=== PATIENT | female | born 1935 | race Caucasian/White ===

== ENCOUNTER 2023-07-17 10:51 | Inpatient (IN) | payer BC, MEDICARE ==
[2023-07-17] MEDS ORDERED: cefTRIAXone (ROCEPHIN) 1 GM VIAL ONE (11:45)
[2023-07-17] MEDS ORDERED: Azithromycin 500 MG VIAL ONE (11:45)
[2023-07-17 11:57] LABS: Hematocrit 35.2 % (34.9-44.5); Mean Corpuscular HGB CONC 32.4 g/dL (32.0-36.0); Mean Corpuscular Hemoglobin 32.2 pg (27.0-33.0); Mean Corpuscular Volume 99.4 fl (81.6-98.3); Mean Platelet Volume 10.1 fl (7.4-10.4); Platelet Count 275 10x3/uL (150-450); RBC Distribution Width 13.3 % (11.5-14.5)
[2023-07-17 12:00] LABS: Hemoglobin 11.4 g/dL (12.0-15.5); MDiff Complete? YES; Red Blood Cell (RBC) Count 3.54 10x6/uL (3.90-5.03); White Blood Cell (WBC) Count 25.9 10x3/uL (3.5-10.5)
[2023-07-17 12:01] LABS: SARS-CoV-2 NAA Rapid Test Not Detected (NotDetected)
[2023-07-17 12:11] LABS: ALT (SGPT) 28 U/L (8-55); AST (SGOT) 21 U/L (5-34); Albumin 3.8 g/dL (3.4-4.8); Alkaline Phosphatase 94 U/L (40-110); Anion Gap 20 mmol/L (10-20); BUN (Urea Nitrogen) 81 mg/dL (9.8-20.1); Bilirubin, Total 1.3 mg/dL (0.2-1.2); Calc. Creatinine Clearance 0 mL/min (70-130); Calcium 9.6 mg/dL (7.8-10.44); Carbon Dioxide 23 mmol/L (23-31); Chloride 102 mmol/L (98-107); Estimated GFR 22; Globulin 3.8 g/dL (2.4-3.5); Glucose 121 mg/dL (83-110); Potassium 3.7 mmol/L (3.5-5.1); Protein, Total 7.6 g/dL (5.8-8.1); Sodium 141 mmol/L (136-145)
[2023-07-17 12:23] LABS: Troponin I 0.588 ng/mL (< 0.028)
[2023-07-17 12:30] LABS: Band 45 % (5-11); Lymphocytes 2 % (21-51); Reactive Lymphocytes 1 % (0-10)
[2023-07-17 12:32] LABS: Monocytes 5 % (0-10); Neutrophil 47 % (42-75)
[2023-07-17 12:34] LABS: Toxic Granulation SLIGHT; Vacuoles SLIGHT
[2023-07-17] MEDS ORDERED: Ondansetron ODT 4 MG TAB PO PRN (13:05)
[2023-07-17] MEDS ORDERED: Communication Order-Pharmacy FS SCH (13:05)
[2023-07-17] MEDS ORDERED: Ondansetron PF 4 MG/2 ML Vial IVP PRN (13:05)
[2023-07-17] MEDS ORDERED: Senokot S 8.6-50 MG TAB PO PRN (13:05)
[2023-07-17] MEDS ORDERED: Ipratropium/Albuterol 3 ML NEB NEB PRN (13:12)
[2023-07-17] MEDS ORDERED: guaiFENesin ER 600 MG TAB PO SCH ×2 (13:15→21:00)
[2023-07-17 14:35] LABS: Lactic Acid 2.7 mmol/L (0.5-2.2)
[2023-07-17] MEDS ORDERED: Furosemide 40 MG (4 mL) VIAL SLOW IVP SCH ×2 (16:30→19:15)
[2023-07-17 16:46] LABS: Bilirubin Neg (Negative); Blood, Urine 10 (Negative); Clarity Cloudy (Clear); Glucose, Urine (Dipstick) Normal (Negative); Ketone, Urine Negative (Negative); Leukocyte 25 (Negative); Nitrite Negative (Negative); Protein, Urine (Dipstick) 30 mg/dl (Neg-Trace)
[2023-07-17 16:56] LABS: CAUTI Indications for Culture Dysuria,urgency,freq
[2023-07-17 16:57] LABS: Bacteria/HPF 3+ HPF (None Seen); Transitional Epithelial 0-3 HPF (None Seen)
[2023-07-17 16:58] LABS: Red Blood Cell Cast 0-3 LPF (None Seen)
[2023-07-17 16:59] LABS: Urine Culture Reflex No No
[2023-07-17] MEDS ORDERED: Carvedilol 6.25 MG TAB PO SCH (17:00)
[2023-07-17 18:41] LABS: Troponin I 0.486 ng/mL (< 0.028)
[2023-07-17] MEDS ORDERED: FLU VACC QS2023(65UP)/MF59C/PF 60 MCG/0.5 ML SYRINGE IM ONE (19:00)
[2023-07-17] MEDS ORDERED: dilTIAZem 25 MG/5 ML VIAL SLOW IVP SCH ×2 (20:00→20:45)
[2023-07-17] MEDS: Metoprolol Tartrate 5 MG (5 mL) VIAL IVP SCH ×2 (20:13→21:11)
[2023-07-17] MEDS ORDERED: Apixaban 2.5 MG TAB PO SCH (21:00)
[2023-07-17 21:08] LABS: Actual Bicarbonate (HCO3v) 20.2 mEq/L (22-28); Analyzer IN Cardio CS ICU; Base Excess -3.5 mEq/L (-2 - +2); Calcium, Ionized (venous) 1.08 mmol/L (1.16-1.32); Chloride (VBG) 106 mmol/L (98-106); Hematocrit-VBG 32 % (36.0-47.0); Potassium (VBG) 3.62 mmol/L (3.70-5.30); Puncture Site Other Site; RapidComm Collect By lab; Sodium 140 mmol/L (133-146); pH (venous) 7.416 (7.32-7.43)
[2023-07-17] MEDS ORDERED: dilTIAZem 125 MG in Sodium Chloride 0.9% 100 ML IVPB SCH ×2 (21:15→21:30)
[2023-07-17] MEDS ORDERED: Dextrose 50% Abboject 50 ML SYRINGE SLOW IVP PRN (21:47)
[2023-07-17] MEDS ORDERED: Glucagon 1 MG/ML KIT IM PRN (21:47)
[2023-07-17] MEDS ORDERED: Dextrose 5% in Water 1,000 ML IV PRN (21:47)
[2023-07-17] MEDS ORDERED: Enoxaparin 30 MG (0.3 mL) SYRINGE SC SCH (22:00)
[2023-07-17] MEDS ORDERED: Meropenem 1 GM in Sodium Chloride 0.9% 100 ML IVPB SCH (22:00)
[2023-07-17] MEDS ORDERED: Vancomycin Dose by Levels Sliding Scale (Wt <71) FS SCH (22:00)
[2023-07-17] MEDS ORDERED: Vancomycin HCl 750 MG in Sodium Chloride 0.9% 250 ML 250 ML IVPB SCH (22:00)
[2023-07-17 22:10] LABS: Anion Gap 19 mmol/L (10-20); BUN (Urea Nitrogen) 80 mg/dL (9.8-20.1); Calc. Creatinine Clearance 14 mL/min (70-130); Calcium 8.8 mg/dL (7.8-10.44); Carbon Dioxide 18 mmol/L (23-31); Chloride 106 mmol/L (98-107); Estimated GFR 24; Glucose 128 mg/dL (83-110); Potassium 3.6 mmol/L (3.5-5.1); Sodium 139 mmol/L (136-145)
[2023-07-17 22:14] LABS: Hematocrit 29.6 % (34.9-44.5); Hemoglobin 9.7 g/dL (12.0-15.5); Mean Corpuscular HGB CONC 32.8 g/dL (32.0-36.0); Mean Corpuscular Hemoglobin 33.7 pg (27.0-33.0); Mean Corpuscular Volume 102.8 fl (81.6-98.3); Mean Platelet Volume 10.7 fl (7.4-10.4); Platelet Count 277 10x3/uL (150-450); RBC Distribution Width 13.2 % (11.5-14.5); Red Blood Cell (RBC) Count 2.88 10x6/uL (3.90-5.03); White Blood Cell (WBC) Count 36.9 10x3/uL (3.5-10.5)
[2023-07-17 22:46] LABS: Band 12 % (5-11); Lymphocytes 1 % (21-51); Monocytes 2 % (0-10)
[2023-07-17 22:47] LABS: Platelet Adequacy Comment Appears Adequate; RBC Morph Comment Within Normal Limits
[2023-07-17 22:48] LABS: Troponin I 0.454 ng/mL (< 0.028)
[2023-07-17] MEDS ORDERED: Digoxin 0.5 MG/2 ML AMP ONE (23:37)
[2023-07-17 23:49] LABS: MDiff Complete? YES
[2023-07-18] MEDS ORDERED: Digoxin 0.5 MG/2 ML AMP SLOW IVP SCH (00:15)
[2023-07-18] MEDS ORDERED: Metoprolol Tartrate 5 MG (5 mL) VIAL IVP SCH (00:45)
[2023-07-18] MEDS ORDERED: Cefepime 2 GM in Sodium Chloride 0.9% 100 ML IVPB SCH (02:00)
[2023-07-18 03:18] LABS: Actual Bicarbonate (HCO3a) 21.3 mEq/L (22-28); Analyzer IN Cardio CS ICU; Base Excess (BEa) -5.1 mEq/L (-2.0 to +3.0); CO2 Tension 45.6 mmHg (35.0-45.0); Calcium, Ionized (arterial) 1.16 mmol/L (1.12-1.30); Carboxyhemoglobin (COHb) 0.3 gm% (0.0-3.0); Hematocrit-ABG 31 % (36.0-47.0); Hemoglobin (Hb) 10.4 g/dL (12.0-16.0); O2 Tension (PaO2), arterial 59.2 mmHg (> 60.0); Potassium - ABG Lab 3.76 mmol/L (3.70-5.30); Puncture Site LRA; pH, Arterial 7.288 (7.35-7.45)
[2023-07-18 03:44] LABS: Hematocrit 30.7 % (34.9-44.5); Hemoglobin 10.1 g/dL (12.0-15.5); Mean Corpuscular HGB CONC 32.9 g/dL (32.0-36.0); Mean Corpuscular Hemoglobin 33.7 pg (27.0-33.0); Mean Corpuscular Volume 102.3 fl (81.6-98.3); Mean Platelet Volume 10.6 fl (7.4-10.4); Platelet Count 299 10x3/uL (150-450); RBC Distribution Width 13.5 % (11.5-14.5); White Blood Cell (WBC) Count 34.5 10x3/uL (3.5-10.5)
[2023-07-18] MEDS ORDERED: Ventilator Sedation Protocol 1 EACH FS ONE (03:59)
[2023-07-18 04:00] LABS: Lactic Acid 1.9 mmol/L (0.5-2.2)
[2023-07-18 04:01] LABS: Band 3 % (5-11); Lymphocytes 3 % (21-51)
[2023-07-18 04:02] LABS: Anion Gap 20 mmol/L (10-20); BUN (Urea Nitrogen) 82 mg/dL (9.8-20.1); Calc. Creatinine Clearance 13 mL/min (70-130); Calcium 8.8 mg/dL (7.8-10.44); Carbon Dioxide 19 mmol/L (23-31); Chloride 107 mmol/L (98-107); Estimated GFR 22; Glucose 133 mg/dL (83-110); MDiff Complete? YES; Platelet Adequacy Comment Appears Adequate; Potassium 3.8 mmol/L (3.5-5.1); RBC Morph Comment Within Normal Limits; Sodium 142 mmol/L (136-145)
[2023-07-18] MEDS ORDERED: DISCONTINUE PREVIOUS NARCOTIC PAIN MEDICATIONS AND BENZODIAZEPINES FS SCH (04:15)
[2023-07-18] MEDS ORDERED: Propofol BOLUS 1,000 MG/100 ML VIAL IV PRN (04:15)
[2023-07-18] MEDS ORDERED: Fentanyl BOLUS 250 ML IVPB PRN (04:15)
[2023-07-18] MEDS ORDERED: FENTANYL 2,000MCG/100-0.9%NACL 100 ML IVPB SCH (04:15)
[2023-07-18] MEDS ORDERED: Propofol 1,000 MG/100 ML VIAL IV PRN (04:15)
[2023-07-18] MEDS ORDERED: Sodium Chloride 0.9% 500 ML IV SCH (04:15)
[2023-07-18 04:54] LABS: Actual Bicarbonate (HCO3a) 21.3 mEq/L (22-28); Analyzer IN Cardio CS ICU; Base Excess (BEa) -4.7 mEq/L (-2.0 to +3.0); CO2 Tension 43.3 mmHg (35.0-45.0); Calcium, Ionized (arterial) 1.12 mmol/L (1.12-1.30); Carboxyhemoglobin (COHb) 0.3 gm% (0.0-3.0); Hematocrit-ABG 29 % (36.0-47.0); Hemoglobin (Hb) 9.8 g/dL (12.0-16.0); O2 Tension (PaO2), arterial 128.7 mmHg (> 60.0); Puncture Site RBA
[2023-07-18 04:56] LABS: ALV-art Gradient 530.175 mmHg (0-20)
[2023-07-18] MEDS: Dexmedetomidine In 0.9 % NaCl 100 ML IVPB SCH ×2 (05:41→17:51)
[2023-07-18] MEDS: Meropenem 500 MG in Sodium Chloride 0.9% 100 ML IVPB SCH ×2 (05:43→17:51)
[2023-07-18] MEDS: Furosemide 20 MG (2 mL) VIAL SLOW IVP SCH ×2 (05:44→14:18)
[2023-07-18 07:18] LABS: Neutrophil 94 % (42-75)
[2023-07-18] MEDS ORDERED: Esmolol 2,500 MG/250 ML 250 ML IVPB SCH (08:45)
[2023-07-18] MEDS: Metoprolol Tartrate 25 MG TAB PO SCH ×2 (09:23→21:22)
[2023-07-18 09:31] LABS: Magnesium 2.3 mg/dL (1.6-2.6)
[2023-07-18] MEDS ORDERED: NOREPINEPHRINE 8 MG/250 ML-D5W 250 ML ONE (11:32)
[2023-07-18] MEDS: NOREPINEPHRINE 8 MG/250 ML-D5W 250 ML IVPB SCH (11:44)
[2023-07-18] MEDS ORDERED: Azithromycin 500 MG in Sodium Chloride 0.9% 250 ML 250 ML IVPB SCH (13:00)
[2023-07-18] MEDS ORDERED: Lactated Ringer's 500 ML IV SCH (15:00)
[2023-07-18] MEDS: Lactated Ringer's 1,000 ML IV SCH (17:55)
[2023-07-18] MEDS: Metoprolol Tartrate 5 MG (5 mL) VIAL IVP PRN (18:16)
[2023-07-18] MEDS: Lorazepam 2 MG/ML VIAL SLOW IVP PRN (18:16)
[2023-07-18] MEDS ORDERED: Enoxaparin 30 MG (0.3 mL) SYRINGE SC SCH (21:00)
[2023-07-18] MEDS: Enoxaparin 30 MG (0.3 mL) SYRINGE SC SCH (21:22)
[2023-07-18 22:22] LABS: Legionella Urinary Ag Negative (Negative); Strep pneumo Urine Ag POSITIVE (NEGATIVE)
[2023-07-18 22:30] LABS: Vancomycin, Random 7.6 ug/mL (See Comment)
[2023-07-18] MEDS ORDERED: Vancomycin HCl 750 MG in Sodium Chloride 0.9% 250 ML 250 ML IVPB SCH (23:45)
[2023-07-19] MEDS: Dexmedetomidine In 0.9 % NaCl 100 ML IVPB SCH ×3 (03:18→22:57)
[2023-07-19] MEDS: NOREPINEPHRINE 8 MG/250 ML-D5W 250 ML IVPB SCH (03:19)
[2023-07-19 04:56] LABS: Hemoglobin 8.7 g/dL (12.0-15.5); MDiff Complete? YES; Mean Corpuscular HGB CONC 33.5 g/dL (32.0-36.0); Mean Corpuscular Hemoglobin 33.7 pg (27.0-33.0); Mean Corpuscular Volume 100.8 fl (81.6-98.3); Mean Platelet Volume 10.3 fl (7.4-10.4); Platelet Count 296 10x3/uL (150-450); RBC Distribution Width 13.5 % (11.5-14.5); Red Blood Cell (RBC) Count 2.58 10x6/uL (3.90-5.03); White Blood Cell (WBC) Count 28.3 10x3/uL (3.5-10.5)
[2023-07-19 05:06] LABS: Phosphorus 4.1 mg/dL (2.3-4.7)
[2023-07-19 05:08] LABS: Anion Gap 16 mmol/L (10-20); BUN (Urea Nitrogen) 89 mg/dL (9.8-20.1); Calc. Creatinine Clearance 13 mL/min (70-130); Calcium 8.2 mg/dL (7.8-10.44); Carbon Dioxide 20 mmol/L (23-31); Chloride 111 mmol/L (98-107); Estimated GFR 23; Glucose 113 mg/dL (83-110); Magnesium 2.2 mg/dL (1.6-2.6); Potassium 3.6 mmol/L (3.5-5.1); Sodium 143 mmol/L (136-145)
[2023-07-19 05:19] LABS: Band 4 % (5-11); Lymphocytes 4 % (21-51); Monocytes 6 % (0-10); Neutrophil 86 % (42-75)
[2023-07-19 05:22] LABS: Platelet Adequacy Comment Appears Adequate; RBC Morph Comment Within Normal Limits; Toxic Granulation SLIGHT
[2023-07-19] MEDS: Meropenem 500 MG in Sodium Chloride 0.9% 100 ML IVPB SCH (05:48)
[2023-07-19] MEDS: Lactated Ringer's 1,000 ML IV SCH ×2 (05:48→11:20)
[2023-07-19] MEDS ORDERED: Furosemide 20 MG (2 mL) VIAL SLOW IVP SCH (06:00)
[2023-07-19] MEDS: Metoprolol Tartrate 25 MG TAB PO SCH ×2 (08:53→21:19)
[2023-07-19] MEDS ORDERED: LevoFLOXacin 750 mg/D5W 750 MG in Premix 1 BAG IVPB SCH (16:30)
[2023-07-19] MEDS: cefTRIAXone\\ROCEPHIN 2 GM in Sodium Chloride 0.9% 100 ML IVPB SCH (17:24)
[2023-07-19] MEDS: Lorazepam 2 MG/ML VIAL SLOW IVP PRN (18:20)
[2023-07-19] MEDS: Enoxaparin 30 MG (0.3 mL) SYRINGE SC SCH (21:19)
[2023-07-19] MEDS: Acetaminophen 325 MG TAB PO PRN (21:24)
[2023-07-20 00:21] LABS: Vancomycin, Random 12.8 ug/mL (See Comment)
[2023-07-20] MEDS ORDERED: Vancomycin HCl 500 MG in Sodium Chloride 0.9% 100 ML IVPB SCH (01:30)
[2023-07-20 03:07] LABS: #Basophils 0.1 10x3/uL (0.0-0.2); #Eosinphils 0.1 10x3/uL (0.0-0.5); #Monocytes 1.2 10x3/uL (0.0-1.1); #Neutrophils 19.9 10x3/uL (1.5-8.4); %Basophils 0.2 % (0.0-2.0); %Eosinophils 0.3 % (0.0-6.0); %Lymphocytes 4.1 % (18.0-47.0); %Monocytes 5.5 % (0.0-10.0); %Neutrophils 87.5 % (40.0-75.0); Hematocrit 26.4 % (34.9-44.5); Hemoglobin 8.8 g/dL (12.0-15.5); Mean Corpuscular HGB CONC 33.3 g/dL (32.0-36.0); Mean Corpuscular Volume 98.9 fl (81.6-98.3); Mean Platelet Volume 10.3 fl (7.4-10.4); Platelet Count 287 10x3/uL (150-450); RBC Distribution Width 13.3 % (11.5-14.5); Red Blood Cell (RBC) Count 2.67 10x6/uL (3.90-5.03); White Blood Cell (WBC) Count 22.7 10x3/uL (3.5-10.5)
[2023-07-20 04:36] LABS: Anion Gap 13 mmol/L (10-20); BUN (Urea Nitrogen) 71 mg/dL (9.8-20.1); Calc. Creatinine Clearance 20 mL/min (70-130); Calcium 8.1 mg/dL (7.8-10.44); Carbon Dioxide 21 mmol/L (23-31); Chloride 112 mmol/L (98-107); Estimated GFR 33; Glucose 126 mg/dL (83-110); Potassium 3.4 mmol/L (3.5-5.1); Sodium 143 mmol/L (136-145)
[2023-07-20] MEDS ORDERED: LevoFLOXacin 500 mg/D5W 500 MG in Premix 1 BAG IVPB SCH (07:30)
[2023-07-20] MEDS: Metoprolol Tartrate 25 MG TAB PO SCH ×2 (08:48→22:43)
[2023-07-20] MEDS: Dexmedetomidine In 0.9 % NaCl 100 ML IVPB SCH ×2 (08:49→21:05)
[2023-07-20] MEDS: Acetaminophen 325 MG TAB PO PRN (08:49)
[2023-07-20] MEDS ORDERED: Potassium Chloride 20 MEQ in Premix 1 BAG IVPB SCH (09:45)
[2023-07-20] MEDS: Lactated Ringer's 1,000 ML IV SCH (14:23)
[2023-07-20] MEDS: cefTRIAXone\\ROCEPHIN 2 GM in Sodium Chloride 0.9% 100 ML IVPB SCH (16:08)
[2023-07-20] MEDS: Enoxaparin 30 MG (0.3 mL) SYRINGE SC SCH (21:05)
[2023-07-20] MEDS: Metoprolol Tartrate 5 MG (5 mL) VIAL IVP PRN (21:05)
[2023-07-21 03:42] LABS: Hematocrit 28.6 % (34.9-44.5); Hemoglobin 9.5 g/dL (12.0-15.5); Mean Corpuscular HGB CONC 33.2 g/dL (32.0-36.0); Mean Corpuscular Hemoglobin 33.1 pg (27.0-33.0); Mean Corpuscular Volume 99.7 fl (81.6-98.3); Mean Platelet Volume 10.7 fl (7.4-10.4); Platelet Count 263 10x3/uL (150-450); RBC Distribution Width 13.3 % (11.5-14.5); Red Blood Cell (RBC) Count 2.87 10x6/uL (3.90-5.03); White Blood Cell (WBC) Count 25.3 10x3/uL (3.5-10.5)
[2023-07-21 03:43] LABS: MDiff Complete? YES
[2023-07-21 03:45] LABS: Anion Gap 14 mmol/L (10-20); BUN (Urea Nitrogen) 55 mg/dL (9.8-20.1); Calc. Creatinine Clearance 28 mL/min (70-130); Calcium 8.3 mg/dL (7.8-10.44); Carbon Dioxide 20 mmol/L (23-31); Chloride 113 mmol/L (98-107); Estimated GFR 46; Glucose 141 mg/dL (83-110); Potassium 3.9 mmol/L (3.5-5.1); Sodium 143 mmol/L (136-145)
[2023-07-21 03:55] LABS: Vancomycin, Random 12.1 ug/mL (See Comment)
[2023-07-21 04:09] LABS: Platelet Adequacy Comment Appears Adequate; RBC Morph Comment Within Normal Limits
[2023-07-21 04:11] LABS: Band 7 % (5-11); Lymphocytes 8 % (21-51); Monocytes 5 % (0-10); Neutrophil 80 % (42-75)
[2023-07-21] MEDS ORDERED: Vancomycin HCl 500 MG in Sodium Chloride 0.9% 100 ML IVPB SCH (04:30)
[2023-07-21] MEDS: Lactated Ringer's 1,000 ML IV SCH ×2 (04:52→08:55)
[2023-07-21] MEDS: Metoprolol Tartrate 5 MG (5 mL) VIAL IVP PRN ×3 (04:54→20:10)
[2023-07-21] MEDS: Metoprolol Tartrate 25 MG TAB PO SCH ×2 (08:55→20:26)
[2023-07-21] MEDS: cefTRIAXone\\ROCEPHIN 2 GM in Sodium Chloride 0.9% 100 ML IVPB SCH (15:08)
[2023-07-21] MEDS: LevoFLOXacin 500 mg/D5W 500 MG in Premix 1 BAG IVPB SCH (16:27)
[2023-07-21] MEDS ORDERED: LevoFLOXacin 500 mg/D5W 500 MG in Premix 1 BAG IVPB SCH (16:30)
[2023-07-21] MEDS: Acetaminophen 325 MG TAB PO PRN (16:54)
[2023-07-21] MEDS: Enoxaparin 30 MG (0.3 mL) SYRINGE SC SCH (20:25)
[2023-07-21] MEDS: Dexmedetomidine In 0.9 % NaCl 100 ML IVPB SCH (23:21)
[2023-07-22 03:33] LABS: #Basophils 0.1 10x3/uL (0.0-0.2); #Eosinphils 0.2 10x3/uL (0.0-0.5); #Monocytes 1.1 10x3/uL (0.0-1.1); #Neutrophils 18.5 10x3/uL (1.5-8.4); %Basophils 0.3 % (0.0-2.0); %Eosinophils 0.7 % (0.0-6.0); %Lymphocytes 4.4 % (18.0-47.0); %Monocytes 4.9 % (0.0-10.0); %Neutrophils 85.7 % (40.0-75.0); Hematocrit 24.1 % (34.9-44.5); Hemoglobin 8.2 g/dL (12.0-15.5); Mean Corpuscular Hemoglobin 33.7 pg (27.0-33.0); Mean Corpuscular Volume 99.2 fl (81.6-98.3); Mean Platelet Volume 10.3 fl (7.4-10.4); Platelet Count 254 10x3/uL (150-450); RBC Distribution Width 13.4 % (11.5-14.5); Red Blood Cell (RBC) Count 2.43 10x6/uL (3.90-5.03); White Blood Cell (WBC) Count 21.6 10x3/uL (3.5-10.5)
[2023-07-22 03:44] LABS: Phosphorus 2.9 mg/dL (2.3-4.7); Vancomycin, Random 13.1 ug/mL (See Comment)
[2023-07-22 03:45] LABS: Anion Gap 13 mmol/L (10-20); BUN (Urea Nitrogen) 55 mg/dL (9.8-20.1); Calc. Creatinine Clearance 29 mL/min (70-130); Calcium 8.2 mg/dL (7.8-10.44); Carbon Dioxide 23 mmol/L (23-31); Chloride 111 mmol/L (98-107); Estimated GFR 46; Glucose 135 mg/dL (83-110); Potassium 3.7 mmol/L (3.5-5.1); Sodium 143 mmol/L (136-145)
[2023-07-22] MEDS ORDERED: Vancomycin HCl 500 MG in Sodium Chloride 0.9% 100 ML IVPB SCH (04:00)
[2023-07-22 04:21] LABS: CRP (Inflammatory) 8.01 mg/dL (= or < 0.5); Magnesium 1.7 mg/dL (1.6-2.6)
[2023-07-22] MEDS: Metoprolol Tartrate 25 MG TAB PO SCH ×2 (08:09→20:32)
[2023-07-22] MEDS ORDERED: Furosemide 40 MG (4 mL) VIAL SLOW IVP SCH (12:00)
[2023-07-22 13:08] LABS: Actual Bicarbonate (HCO3a) 23.8 mEq/L (22-28); Analyzer IN Cardio CS ICU; Base Excess (BEa) 0.6 mEq/L (-2.0 to +3.0); CO2 Tension 33.5 mmHg (35.0-45.0); Carboxyhemoglobin (COHb) 0.5 gm% (0.0-3.0); Hematocrit-ABG 36 % (36.0-47.0); Hemoglobin (Hb) 12.4 g/dL (12.0-16.0); O2 Tension (PaO2), arterial 71.3 mmHg (> 60.0); Potassium - ABG Lab 3.64 mmol/L (3.70-5.30); Puncture Site RRA; pH, Arterial 7.469 (7.35-7.45)
[2023-07-22 13:13] LABS: ALV-art Gradient 100.725 mmHg (0-20)
[2023-07-22] MEDS: Furosemide 40 MG (4 mL) VIAL SLOW IVP SCH (13:57)
[2023-07-22] MEDS: cefTRIAXone\\ROCEPHIN 2 GM in Sodium Chloride 0.9% 100 ML IVPB SCH (15:48)
[2023-07-22] MEDS: Enoxaparin 30 MG (0.3 mL) SYRINGE SC SCH (20:32)
[2023-07-22] MEDS: Dexmedetomidine In 0.9 % NaCl 100 ML IVPB SCH (23:52)
[2023-07-23 03:59] LABS: #Eosinphils 0.2 10x3/uL (0.0-0.5); #Monocytes 0.9 10x3/uL (0.0-1.1); #Neutrophils 13.9 10x3/uL (1.5-8.4); %Basophils 0.2 % (0.0-2.0); %Eosinophils 1.3 % (0.0-6.0); %Lymphocytes 5.8 % (18.0-47.0); %Monocytes 5.3 % (0.0-10.0); %Neutrophils 82.6 % (40.0-75.0); Hematocrit 23.3 % (34.9-44.5); Hemoglobin 7.7 g/dL (12.0-15.5); Mean Corpuscular Hemoglobin 32.4 pg (27.0-33.0); Mean Corpuscular Volume 97.9 fl (81.6-98.3); Mean Platelet Volume 10.5 fl (7.4-10.4); Platelet Count 301 10x3/uL (150-450); RBC Distribution Width 13.7 % (11.5-14.5); Red Blood Cell (RBC) Count 2.38 10x6/uL (3.90-5.03); White Blood Cell (WBC) Count 16.8 10x3/uL (3.5-10.5)
[2023-07-23 04:00] LABS: Phosphorus 3.2 mg/dL (2.3-4.7)
[2023-07-23 04:04] LABS: Vancomycin, Random 13.4 ug/mL (See Comment)
[2023-07-23 04:06] LABS: ALT (SGPT) 14 U/L (8-55); AST (SGOT) 17 U/L (5-34); Albumin 2.4 g/dL (3.4-4.8); Alkaline Phosphatase 52 U/L (40-110); Anion Gap 13 mmol/L (10-20); BUN (Urea Nitrogen) 47 mg/dL (9.8-20.1); Bilirubin, Total 0.3 mg/dL (0.2-1.2); CRP (Inflammatory) 5.19 mg/dL (= or < 0.5); Calc. Creatinine Clearance 33 mL/min (70-130); Carbon Dioxide 25 mmol/L (23-31); Chloride 108 mmol/L (98-107); Estimated GFR 54; Globulin 2.8 g/dL (2.4-3.5); Glucose 121 mg/dL (83-110); Magnesium 1.6 mg/dL (1.6-2.6); Potassium 3.4 mmol/L (3.5-5.1); Protein, Total 5.2 g/dL (5.8-8.1); Sodium 143 mmol/L (136-145)
[2023-07-23] MEDS ORDERED: Vancomycin HCl 750 MG in Sodium Chloride 0.9% 250 ML 250 ML IVPB SCH (04:30)
[2023-07-23] MEDS: Furosemide 40 MG (4 mL) VIAL SLOW IVP SCH ×2 (05:32→13:28)
[2023-07-23] MEDS: Metoprolol Tartrate 25 MG TAB PO SCH ×2 (08:39→20:47)
[2023-07-23] MEDS ORDERED: Potassium Chloride 20 MEQ in Premix 1 BAG IVPB SCH (10:00)
[2023-07-23] MEDS: Morphine 2 MG/ML VIAL SLOW IVP PRN (13:48)
[2023-07-23] MEDS: Metoprolol Tartrate 5 MG (5 mL) VIAL IVP PRN (14:10)
[2023-07-23] MEDS: cefTRIAXone\\ROCEPHIN 2 GM in Sodium Chloride 0.9% 100 ML IVPB SCH (15:35)
[2023-07-23] MEDS: LevoFLOXacin 500 mg/D5W 500 MG in Premix 1 BAG IVPB SCH (15:36)
[2023-07-23] MEDS: Enoxaparin 30 MG (0.3 mL) SYRINGE SC SCH (20:47)
[2023-07-24] MEDS: Metoprolol Tartrate 5 MG (5 mL) VIAL IVP PRN (00:44)
[2023-07-24] MEDS: Morphine 2 MG/ML VIAL SLOW IVP PRN (02:43)
[2023-07-24 02:50] LABS: #Basophils 0.1 10x3/uL (0.0-0.2); #Eosinphils 0.2 10x3/uL (0.0-0.5); #Monocytes 0.9 10x3/uL (0.0-1.1); #Neutrophils 14.3 10x3/uL (1.5-8.4); %Basophils 0.3 % (0.0-2.0); %Eosinophils 1.2 % (0.0-6.0); %Lymphocytes 6.9 % (18.0-47.0); %Monocytes 5.1 % (0.0-10.0); %Neutrophils 83.1 % (40.0-75.0); Hematocrit 25.4 % (34.9-44.5); Hemoglobin 8.4 g/dL (12.0-15.5); Mean Corpuscular HGB CONC 33.1 g/dL (32.0-36.0); Mean Corpuscular Hemoglobin 32.4 pg (27.0-33.0); Mean Corpuscular Volume 98.1 fl (81.6-98.3); Mean Platelet Volume 10.4 fl (7.4-10.4); Platelet Count 363 10x3/uL (150-450); RBC Distribution Width 13.8 % (11.5-14.5); Red Blood Cell (RBC) Count 2.59 10x6/uL (3.90-5.03); White Blood Cell (WBC) Count 17.2 10x3/uL (3.5-10.5)
[2023-07-24 02:57] LABS: Vancomycin, Random 17.1 ug/mL (See Comment)
[2023-07-24 02:59] LABS: ALT (SGPT) 14 U/L (8-55); AST (SGOT) 18 U/L (5-34); Albumin 2.7 g/dL (3.4-4.8); Alkaline Phosphatase 57 U/L (40-110); Anion Gap 15 mmol/L (10-20); BUN (Urea Nitrogen) 46 mg/dL (9.8-20.1); Bilirubin, Total 0.2 mg/dL (0.2-1.2); Calc. Creatinine Clearance 29 mL/min (70-130); Calcium 8.3 mg/dL (7.8-10.44); Carbon Dioxide 28 mmol/L (23-31); Chloride 103 mmol/L (98-107); Estimated GFR 51; Globulin 3.2 g/dL (2.4-3.5); Glucose 135 mg/dL (83-110); Magnesium 1.6 mg/dL (1.6-2.6); Phosphorus 3.7 mg/dL (2.3-4.7); Potassium 3.7 mmol/L (3.5-5.1); Protein, Total 5.9 g/dL (5.8-8.1); Sodium 142 mmol/L (136-145)
[2023-07-24] MEDS ORDERED: Vancomycin HCl 500 MG in Sodium Chloride 0.9% 100 ML IVPB SCH (04:00)
[2023-07-24] MEDS: Furosemide 40 MG (4 mL) VIAL SLOW IVP SCH (05:32)
[2023-07-24] MEDS: Dexmedetomidine In 0.9 % NaCl 100 ML IVPB SCH (05:33)
[2023-07-24] MEDS: Metoprolol Tartrate 25 MG TAB PO SCH ×2 (08:06→20:35)
[2023-07-24] MEDS: cefTRIAXone\\ROCEPHIN 2 GM in Sodium Chloride 0.9% 100 ML IVPB SCH (15:35)
[2023-07-24] MEDS: Enoxaparin 30 MG (0.3 mL) SYRINGE SC SCH (20:21)
[2023-07-25 03:29] LABS: #Eosinphils 0.1 10x3/uL (0.0-0.5); #Monocytes 0.8 10x3/uL (0.0-1.1); #Neutrophils 11.6 10x3/uL (1.5-8.4); %Basophils 0.3 % (0.0-2.0); %Eosinophils 0.9 % (0.0-6.0); %Lymphocytes 8.9 % (18.0-47.0); %Monocytes 5.7 % (0.0-10.0); %Neutrophils 82.3 % (40.0-75.0); Hemoglobin 7.4 g/dL (12.0-15.5); Mean Corpuscular HGB CONC 33.6 g/dL (32.0-36.0); Mean Corpuscular Hemoglobin 33.3 pg (27.0-33.0); Mean Corpuscular Volume 99.1 fl (81.6-98.3); Mean Platelet Volume 10.7 fl (7.4-10.4); Platelet Count 344 10x3/uL (150-450); RBC Distribution Width 14.1 % (11.5-14.5); Red Blood Cell (RBC) Count 2.22 10x6/uL (3.90-5.03); White Blood Cell (WBC) Count 14.1 10x3/uL (3.5-10.5)
[2023-07-25 03:48] LABS: ALT (SGPT) 13 U/L (8-55); AST (SGOT) 18 U/L (5-34); Albumin 2.4 g/dL (3.4-4.8); Alkaline Phosphatase 49 U/L (40-110); Anion Gap 12 mmol/L (10-20); BUN (Urea Nitrogen) 48 mg/dL (9.8-20.1); Bilirubin, Total 0.2 mg/dL (0.2-1.2); Calc. Creatinine Clearance 30 mL/min (70-130); Carbon Dioxide 30 mmol/L (23-31); Chloride 103 mmol/L (98-107); Estimated GFR 54; Globulin 2.7 g/dL (2.4-3.5); Glucose 131 mg/dL (83-110); Magnesium 1.7 mg/dL (1.6-2.6); Phosphorus 3.7 mg/dL (2.3-4.7); Potassium 3.6 mmol/L (3.5-5.1); Protein, Total 5.1 g/dL (5.8-8.1); Sodium 141 mmol/L (136-145); Vancomycin, Random 16.2 ug/mL (See Comment)
[2023-07-25] MEDS ORDERED: Vancomycin HCl 500 MG in Sodium Chloride 0.9% 100 ML IVPB SCH (05:00)
[2023-07-25] MEDS: Dexmedetomidine In 0.9 % NaCl 100 ML IVPB SCH ×2 (05:10→21:28)
[2023-07-25 05:32] LABS: ALV-art Gradient 86.725 mmHg (0-20); Actual Bicarbonate (HCO3a) 31.1 mEq/L (22-28); Analyzer IN Cardio CS ICU; Base Excess (BEa) 7.8 mEq/L (-2.0 to +3.0); CO2 Tension 37.9 mmHg (35.0-45.0); Calcium, Ionized (arterial) 1.14 mmol/L (1.12-1.30); Carboxyhemoglobin (COHb) 0.7 gm% (0.0-3.0); Critical Notified By: CP.PH; Hematocrit-ABG 22 % (36.0-47.0); Hemoglobin (Hb) 7.4 g/dL (12.0-16.0); O2 Tension (PaO2), arterial 79.8 mmHg (> 60.0); Potassium - ABG Lab 3.49 mmol/L (3.70-5.30); Puncture Site LRA; RapidComm Collect By CP.PH; pH, Arterial 7.532 (7.35-7.45)
[2023-07-25] MEDS: Metoprolol Tartrate 25 MG TAB PO SCH ×2 (08:42→20:26)
[2023-07-25 10:32] VITALS: BMI 21.4
[2023-07-25] MEDS: LevoFLOXacin 500 mg/D5W 500 MG in Premix 1 BAG IVPB SCH (15:50)
[2023-07-25] MEDS: Enoxaparin 30 MG (0.3 mL) SYRINGE SC SCH (20:26)
[2023-07-26 03:27] LABS: #Basophils 0.1 10x3/uL (0.0-0.2); #Eosinphils 0.1 10x3/uL (0.0-0.5); #Monocytes 0.9 10x3/uL (0.0-1.1); #Neutrophils 12.6 10x3/uL (1.5-8.4); %Basophils 0.3 % (0.0-2.0); %Eosinophils 0.7 % (0.0-6.0); %Lymphocytes 8.7 % (18.0-47.0); %Neutrophils 82.9 % (40.0-75.0); Hematocrit 23.5 % (34.9-44.5); Hemoglobin 7.6 g/dL (12.0-15.5); Mean Corpuscular HGB CONC 32.3 g/dL (32.0-36.0); Mean Corpuscular Hemoglobin 31.9 pg (27.0-33.0); Mean Corpuscular Volume 98.7 fl (81.6-98.3); Mean Platelet Volume 10.4 fl (7.4-10.4); Platelet Count 382 10x3/uL (150-450); RBC Distribution Width 13.9 % (11.5-14.5); Red Blood Cell (RBC) Count 2.38 10x6/uL (3.90-5.03); White Blood Cell (WBC) Count 15.2 10x3/uL (3.5-10.5)
[2023-07-26 04:04] LABS: Actual Bicarbonate (HCO3a) 28.5 mEq/L (22-28); Analyzer IN Cardio CS ICU; Base Excess (BEa) 5.4 mEq/L (-2.0 to +3.0); Calcium, Ionized (arterial) 1.13 mmol/L (1.12-1.30); Hematocrit-ABG 24 % (36.0-47.0); Hemoglobin (Hb) 8.1 g/dL (12.0-16.0); O2 Tension (PaO2), arterial 72.6 mmHg (> 60.0); Potassium - ABG Lab 3.72 mmol/L (3.70-5.30); Puncture Site RBA; pH, Arterial 7.528 (7.35-7.45)
[2023-07-26 04:17] LABS: Phosphorus 3.5 mg/dL (2.3-4.7)
[2023-07-26 04:18] LABS: Anion Gap 13 mmol/L (10-20); BUN (Urea Nitrogen) 49 mg/dL (9.8-20.1); Calc. Creatinine Clearance 34 mL/min (70-130); Calcium 8.2 mg/dL (7.8-10.44); Carbon Dioxide 28 mmol/L (23-31); Chloride 103 mmol/L (98-107); Estimated GFR 58; Glucose 119 mg/dL (83-110); Magnesium 1.8 mg/dL (1.6-2.6); Sodium 140 mmol/L (136-145)
[2023-07-26] MEDS: Metoprolol Tartrate 25 MG TAB PO SCH ×2 (08:02→20:37)
[2023-07-26] MEDS: Enoxaparin 30 MG (0.3 mL) SYRINGE SC SCH (20:37)
[2023-07-27 03:37] LABS: #Basophils 0.1 10x3/uL (0.0-0.2); #Eosinphils 0.1 10x3/uL (0.0-0.5); #Monocytes 1.3 10x3/uL (0.0-1.1); %Basophils 0.3 % (0.0-2.0); %Eosinophils 0.4 % (0.0-6.0); %Lymphocytes 8.2 % (18.0-47.0); %Monocytes 6.9 % (0.0-10.0); %Neutrophils 83.2 % (40.0-75.0); Hematocrit 23.4 % (34.9-44.5); Hemoglobin 7.7 g/dL (12.0-15.5); Mean Corpuscular HGB CONC 32.9 g/dL (32.0-36.0); Mean Corpuscular Volume 97.1 fl (81.6-98.3); Mean Platelet Volume 10.3 fl (7.4-10.4); Platelet Count 452 10x3/uL (150-450); Red Blood Cell (RBC) Count 2.41 10x6/uL (3.90-5.03); White Blood Cell (WBC) Count 18.1 10x3/uL (3.5-10.5)
[2023-07-27 03:50] LABS: Anion Gap 12 mmol/L (10-20); BUN (Urea Nitrogen) 50 mg/dL (9.8-20.1); Calc. Creatinine Clearance 38 mL/min (70-130); Calcium 8.2 mg/dL (7.8-10.44); Carbon Dioxide 26 mmol/L (23-31); Chloride 102 mmol/L (98-107); Estimated GFR 57; Glucose 125 mg/dL (83-110); Sodium 136 mmol/L (136-145)
[2023-07-27 04:59] LABS: ALV-art Gradient 86.525 mmHg (0-20); Actual Bicarbonate (HCO3a) 30.1 mEq/L (22-28); Analyzer IN Cardio CS ICU; Base Excess (BEa) 7.2 mEq/L (-2.0 to +3.0); CO2 Tension 35.9 mmHg (35.0-45.0); Calcium, Ionized (arterial) 1.15 mmol/L (1.12-1.30); Carboxyhemoglobin (COHb) 0.5 gm% (0.0-3.0); Critical Notified By: CP.PH; Hematocrit-ABG 24 % (36.0-47.0); Hemoglobin (Hb) 8.2 g/dL (12.0-16.0); O2 Tension (PaO2), arterial 82.5 mmHg (> 60.0); Potassium - ABG Lab 3.84 mmol/L (3.70-5.30); Puncture Site LRA; RapidComm Collect By CP.PH; pH, Arterial 7.542 (7.35-7.45)
[2023-07-27] MEDS: Dexmedetomidine In 0.9 % NaCl 100 ML IVPB SCH (05:51)
[2023-07-27] MEDS: Metoprolol Tartrate 25 MG TAB PO SCH (07:31)
[2023-07-27 12:56] VITALS: BP 117/50; TEMP 98.5
== END 2023-07-27 14:14 | disposition hospice, inpatient (51) | DRG 870 ==
LOC: CSHERS 10:51 → CSHERHOLD 12:52 → CSHTELE 18:23 → CSHICU 21:56
PROVIDERS: ADMIT Family Medicine; ATTEND Family Medicine
PROC: 5A09357 Assistance with Respiratory Ventilation, Less than 24 Consecutive Hours, Continuous Positive Airway Pressure (ICD-10-PCS; 2023-07-17)
PROC: 3E03329 Introduction of Other Anti-infective into Peripheral Vein, Percutaneous Approach (ICD-10-PCS; 2023-07-17)
PROC: 5A1955Z Respiratory Ventilation, Greater than 96 Consecutive Hours (ICD-10-PCS; principal; 2023-07-18)
PROC: 0BH17EZ Insertion of Endotracheal Airway into Trachea, Via Natural or Artificial Opening (ICD-10-PCS; 2023-07-18)
PROC: 3E033XZ Introduction of Vasopressor into Peripheral Vein, Percutaneous Approach (ICD-10-PCS; 2023-07-18)
PROC: 4A133R1 Monitoring of Arterial Saturation, Peripheral, Percutaneous Approach (ICD-10-PCS; 2023-07-18)
DX: A41.9 Sepsis, unspecified organism (principal); E43 Unspecified severe protein-calorie malnutrition; J18.9 Pneumonia, unspecified organism; J96.01 Acute respiratory failure with hypoxia; Z66 Do not resuscitate; Z51.5 Encounter for palliative care; J81.0 Acute pulmonary edema; I21.A1 Myocardial infarction type 2; R64 Cachexia; N17.9 Acute kidney failure, unspecified; E87.20 Acidosis, unspecified; F03.90 Unspecified dementia, unspecified severity, without behavioral disturbance, psychotic disturbance, mood disturbance, and anxiety; E78.5 Hyperlipidemia, unspecified; I10 Essential (primary) hypertension; E03.9 Hypothyroidism, unspecified; R65.20 Severe sepsis without septic shock; I48.0 Paroxysmal atrial fibrillation; I07.1 Rheumatic tricuspid insufficiency; N13.9 Obstructive and reflux uropathy, unspecified; I49.5 Sick sinus syndrome; D64.9 Anemia, unspecified; B34.8 Other viral infections of unspecified site; Z95.0 Presence of cardiac pacemaker; Z90.49 Acquired absence of other specified parts of digestive tract; Z91.013 Allergy to seafood; Z88.2 Allergy status to sulfonamides; Z91.09 Other allergy status, other than to drugs and biological substances; Z11.52 Encounter for screening for COVID-19; Z68.22 Body mass index [BMI] 22.0-22.9, adult
CPT/HCPCS: 36415; 36416; 36600; 71045; 71250; 74176; 80048; 80053; 80202; 81001; 82040; 82805; 83605; 83735; 83880; 84100; 84145; 84443; 84484; 85025; 86140; 87040; 87070; 87081; 87205; 87449; 87633; 87798; 87899; 89220; 93005; 93010; 93306; 94002; 94003; 94150; 94660; 94760; 94762; 96365; 96367; 97139; J0456; J0696; J1160; J1650; J1940; J1956; J2060; J2185; J2272; J3370; J3480; J3490; J7030; J7050; J7120

== ENCOUNTER 2023-07-27 14:47 | Inpatient (IN) | payer MEDICARE ==
[2023-07-27 15:00] VITALS: BMI 22.6
[2023-07-27 15:05] VITALS: TEMP 98
[2023-07-27] MEDS ORDERED: Morphine 2 MG/ML VIAL SLOW IVP PRN (15:11)
[2023-07-27] MEDS ORDERED: Lorazepam 2 MG/ML VIAL SLOW IVP PRN ×2 (15:12→16:09)
[2023-07-27] MEDS ORDERED: Ondansetron PF 4 MG/2 ML Vial IVP PRN (15:15)
[2023-07-27] MEDS ORDERED: Morphine 4 MG/ML VIAL SLOW IVP PRN (15:15)
[2023-07-27] MEDS ORDERED: Scopolamine 1 mg/72 hour Patch TOP PRN (15:15)
[2023-07-27] MEDS ORDERED: Lorazepam 1 MG TAB PO PRN (15:15)
[2023-07-27] MEDS ORDERED: Atropine Sulfate 1% Ophth Soln 5 ml Bottle SL PRN (16:11)
[2023-07-27] MEDS ORDERED: Acetaminophen 650 MG Suppository PR PRN (16:11)
[2023-07-27] MEDS: Morphine 2 MG/ML VIAL SLOW IVP SCH ×4 (17:23→23:30)
[2023-07-27] MEDS: Lorazepam 2 MG/ML VIAL SLOW IVP SCH ×4 (17:23→23:30)
[2023-07-28] MEDS: Morphine 2 MG/ML VIAL SLOW IVP SCH (01:45)
[2023-07-28 03:40] VITALS: BP 161/59
== END 2023-07-28 07:05 | disposition expired | DRG 951 ==
LOC: CSHICU 14:47
PROVIDERS: ADMIT Family Medicine; ATTEND Family Medicine
PROC: 3E03329 Introduction of Other Anti-infective into Peripheral Vein, Percutaneous Approach (ICD-10-PCS; principal; 2023-07-27)
PROC: 5A1935Z Respiratory Ventilation, Less than 24 Consecutive Hours (ICD-10-PCS; 2023-07-27)
DX: Z51.5 Encounter for palliative care (principal); A41.9 Sepsis, unspecified organism; E43 Unspecified severe protein-calorie malnutrition; J18.9 Pneumonia, unspecified organism; I21.A1 Myocardial infarction type 2; J96.01 Acute respiratory failure with hypoxia; R65.20 Severe sepsis without septic shock; N17.9 Acute kidney failure, unspecified; R64 Cachexia; Z66 Do not resuscitate; E03.9 Hypothyroidism, unspecified; I48.0 Paroxysmal atrial fibrillation; I10 Essential (primary) hypertension; D53.9 Nutritional anemia, unspecified; Z68.22 Body mass index [BMI] 22.0-22.9, adult; B97.89 Other viral agents as the cause of diseases classified elsewhere
CPT/HCPCS: 94762; J2060; J2272